=== PATIENT | female | born 1960 | race Caucasian/White ===

== ENCOUNTER 2021-03-30 13:39 | Inpatient (IN) | payer BC ==
[2021-03-30] MEDS ORDERED: Iopamidol-370 76% 500 ML 1 ML ONE (14:54)
[2021-03-30] MEDS ORDERED: Vancomycin 1.5 GRAM/300 ML BAG 1.5 GM in Premix Bag 1 BAG IVPB SCH (15:00)
[2021-03-30 15:03] LABS: Mean Corpuscular HGB CONC 33.3 g/dL (32.0-36.0); Mean Corpuscular Hemoglobin 30.4 pg (27.0-31.0); Mean Corpuscular Volume 91.2 fL (78.0-98.0); Mean Platelet Volume 8.3 fL (7.4-10.4); Platelet Count 161 thou/uL (130-400); RBC Distribution Width 13.2 % (11.5-14.5); Red Blood Cell (RBC) Count 3.93 mill/uL (4.20-5.40); White Blood Cell (WBC) Count 7.4 thou/uL (4.8-10.8)
[2021-03-30 15:08] LABS: Bacteria/HPF None Seen HPF (None Seen); Bilirubin 2+ (Negative); Blood, Urine 1+ (Negative); Clarity Turbid (Clear); Glucose, Urine (Dipstick) Normal (Negative); Ketone, Urine Trace mg/dL (Negative); Leukocyte Negative Leu/uL (Negative); Nitrite Negative (Negative); Protein, Urine (Dipstick) 70 mg/dL (Neg-Trace); RBC/HPF 0-3 HPF (0-3); Specific Gravity, Urine 1.032 (1.002-1.036); Squamous Epithelial None Seen HPF (0-3); WBC/HPF 0-3 HPF (0-3)
[2021-03-30 15:19] LABS: Anion Gap 16 mmol/L (10-20); BUN (Urea Nitrogen) 17 mg/dL (9.8-20.1); Calc. Creatinine Clearance 0 mL/min (70-130); Carbon Dioxide 19 mmol/L (22-29); Chloride 104 mmol/L (98-107); Sodium 136 mmol/L (136-145)
[2021-03-30 15:20] LABS: ALT (SGPT) 378 U/L (8-55); AST (SGOT) 292 U/L (5-34); Albumin 3.4 g/dL (3.5-5.0); Alkaline Phosphatase 342 U/L (40-110); Bilirubin, Total 5.6 mg/dL (0.2-1.2); Calcium 8.1 mg/dL (7.8-10.44); Globulin 2.1 g/dL (2.4-3.5); Glucose 102 mg/dL (70-105); Lipase 13 U/L (8-78); Protein, Total 5.5 g/dL (6.0-8.3)
[2021-03-30 15:21] LABS: Band 59 % (5-11); Lymphocytes 4 % (21-51); MDiff Complete? YES; Metamyelocyte 1 % (0-0); Monocytes 9 % (0-10); Neutrophil 25 % (42-75); Platelet Morphology Comment Appears Adequate; RBC Morphology Normal; Reactive Lymphocytes 2 % (0-10); Reflex for Review?? YES
[2021-03-30 15:22] LABS: Potassium 2.7 mmol/L (3.5-5.1)
[2021-03-30] MEDS ORDERED: Cefepime 2 GM VIAL ONE (15:32)
[2021-03-30 15:46] LABS: CKMB 1.5 ng/mL (0-6.6)
[2021-03-30] MEDS ORDERED: Magnesium 2 GM/50 ML BAG (IN WATER) ONE (17:24)
[2021-03-30 17:35] LABS: SARS-CoV-2 NAA Rapid Test Not Detected (NotDetected)
[2021-03-30 18:02] LABS: Lactic Acid 3.5 mmol/L (0.5-2.2)
[2021-03-30] MEDS ORDERED: NS 0.9% w/ 40 MEQ KCL 1,000 ML IV SCH (18:15)
[2021-03-30] MEDS ORDERED: Calcium Carbonate 500 MG ChewTAB PO PRN (19:09)
[2021-03-30] MEDS ORDERED: Nitroglycerin 0.4 MG TAB (25 Tab Bottle) SL PRN (19:12)
[2021-03-30] MEDS ORDERED: Potassium Chloride 40 MEQ in Sodium Chloride 0.9% 250 ML 250 ML IVPB SCH (19:15)
[2021-03-30] MEDS ORDERED: Morphine 2 MG/ML VIAL SLOW IVP PRN (19:20)
[2021-03-30] MEDS ORDERED: Heparin 10,000 UNITS/ 10 ML VIAL SLOW IVP SCH ×2 (19:30→22:00)
[2021-03-30] MEDS ORDERED: Heparin 25,000 units/D5W 500 ML IVPB SCH ×2 (19:30→22:00)
[2021-03-30 19:50] LABS: Hemoglobin 11.9 g/dL (12.0-16.0); Platelet Count 164 thou/uL (130-400)
[2021-03-30 19:57] LABS: Phosphorus 2.9 mg/dL (2.3-4.7)
[2021-03-30 19:59] LABS: ALT (SGPT) 329 U/L (8-55); AST (SGOT) 233 U/L (5-34); Albumin 3.2 g/dL (3.5-5.0); Alkaline Phosphatase 306 U/L (40-110); Anion Gap 17 mmol/L (10-20); BUN (Urea Nitrogen) 17 mg/dL (9.8-20.1); Bilirubin, Total 5.7 mg/dL (0.2-1.2); Calc. Creatinine Clearance 0 mL/min (70-130); Calcium 7.8 mg/dL (7.8-10.44); Carbon Dioxide 19 mmol/L (22-29); Chloride 106 mmol/L (98-107); Glucose 110 mg/dL (70-105); Potassium 3.3 mmol/L (3.5-5.1); Protein, Total 5.2 g/dL (6.0-8.3); Sodium 139 mmol/L (136-145)
[2021-03-30] MEDS ORDERED: Potassium Chloride 20 MEQ TAB PO SCH (20:00)
[2021-03-30 20:02] LABS: Hemoglobin A1c 5.3 % (4.0-6.0)
[2021-03-30 20:05] LABS: Critical Call Chem Troponin I RESULT DECREASING; Troponin I 1.951 ng/mL (< 0.028)
[2021-03-30 20:35] LABS: CKMB 3.8 ng/mL (0-6.6)
[2021-03-30] MEDS ORDERED: Enoxaparin Sodium 100 MG/ML SYRINGE SC SCH ×2 (21:00→21:15)
[2021-03-30] MEDS ORDERED: Atorvastatin Calcium 40 MG TAB PO SCH (21:30)
[2021-03-30] MEDS ORDERED: Meropenem 2 GM in Admixture Fee 1 EACH IVPB SCH (22:00)
[2021-03-30] MEDS ORDERED: MEROPENEM 1 GM/50 ML 1 GM in Premix Bag 1 BAG IVPB SCH (22:00)
[2021-03-30] MEDS: Lactated Ringer's 1,000 ML IV SCH (23:55)
[2021-03-31 00:02] LABS: Hemoglobin 11.5 g/dL (12.0-16.0); Platelet Count 152 thou/uL (130-400)
[2021-03-31] MEDS ORDERED: Pantoprazole 40 MG VIAL ONE (00:21)
[2021-03-31] MEDS: Pantoprazole 40 MG VIAL IVP SCH ×3 (00:27→20:49)
[2021-03-31 01:11] VITALS: BMI 37.5
[2021-03-31] MEDS ORDERED: Heparin 25,000 units/D5W 500 ML ONE (01:20)
[2021-03-31] MEDS ORDERED: Heparin 10,000 UNITS/ 10 ML VIAL ONE (01:21)
[2021-03-31] MEDS ORDERED: Heparin 10,000 UNITS/ 10 ML VIAL SLOW IVP SCH ×2 (01:45→09:45)
[2021-03-31] MEDS ORDERED: Heparin 25,000 units/D5W 500 ML IVPB SCH ×2 (01:45→09:45)
[2021-03-31] MEDS: Lactated Ringer's 1,000 ML IV SCH ×3 (02:58→17:23)
[2021-03-31] MEDS ORDERED: Acetaminophen 325 MG TAB ONE (02:59)
[2021-03-31] MEDS: Acetaminophen 325 MG TAB PO PRN (03:00)
[2021-03-31 04:35] LABS: Hemoglobin 11.1 g/dL (12.0-16.0); Mean Corpuscular HGB CONC 33.2 g/dL (32.0-36.0); Mean Corpuscular Hemoglobin 30.2 pg (27.0-31.0); Mean Platelet Volume 8.7 fL (7.4-10.4); Platelet Count 136 thou/uL (130-400); RBC Distribution Width 13.5 % (11.5-14.5); Red Blood Cell (RBC) Count 3.68 mill/uL (4.20-5.40); White Blood Cell (WBC) Count 10.1 thou/uL (4.8-10.8)
[2021-03-31 04:46] LABS: INR-International Normal Ratio 1.7; Prothrombin Time 20.3 sec (12.0-14.7)
[2021-03-31 04:52] LABS: Lactic Acid 1.7 mmol/L (0.5-2.2)
[2021-03-31 04:57] LABS: PTT 126.3 sec (22.9-36.1)
[2021-03-31 05:03] LABS: Critical Call Chem Troponin I RESULT DECREASING; Troponin I 1.697 ng/mL (< 0.028)
[2021-03-31 05:07] LABS: Band 46 % (5-11); Eosinophils 1 % (0-10); Lymphocytes 9 % (21-51); MDiff Complete? YES; Metamyelocyte 1 % (0-0); Monocytes 3 % (0-10); Neutrophil 40 % (42-75)
[2021-03-31 05:19] LABS: ALT (SGPT) 277 U/L (8-55); AST (SGOT) 175 U/L (5-34); Albumin 3.1 g/dL (3.5-5.0); Alkaline Phosphatase 277 U/L (40-110); BUN (Urea Nitrogen) 14 mg/dL (9.8-20.1); Bilirubin, Total 5.1 mg/dL (0.2-1.2); Calc. Creatinine Clearance 144 mL/min (70-130); Calcium 7.7 mg/dL (7.8-10.44); Carbon Dioxide 17 mmol/L (22-29); Cardiac Risk 5.2 (Less than 4.5); Chloride 109 mmol/L (98-107); Cholesterol 89 mg/dl (< 200 Desired); Glucose 105 mg/dL (70-105); HDL Cholesterol 17 mg/dL (>60 Neg Risk); LDL Cholesterol, Calculated 45 mg/dL; Lipase 25 U/L (8-78); Potassium 3.9 mmol/L (3.5-5.1); Protein, Total 5.1 g/dL (6.0-8.3); Sodium 138 mmol/L (136-145); Triglycerides 137 mg/dL (Less than 150)
[2021-03-31 05:58] LABS: Anion Gap 16 mmol/L (10-20)
[2021-03-31] MEDS: MEROPENEM 1 GM/50 ML 1 GM in Premix Bag 1 BAG IVPB SCH ×3 (06:35→22:00)
[2021-03-31] MEDS ORDERED: FLUoxetine HCl 10 MG CAP PO SCH (09:00)
[2021-03-31] MEDS ORDERED: Atorvastatin Calcium 10 MG TAB PO SCH (09:00)
[2021-03-31] MEDS: Montelukast Sodium 10 mg Tablet PO SCH (09:09)
[2021-03-31] MEDS: Lisinopril 20 MG TAB PO SCH (09:09)
[2021-03-31 09:55] LABS: Iron 13 ug/dL (50-170); Iron Binding Capacity, Total 194 mcg/dL (265-497)
[2021-03-31 10:15] LABS: HBCM Index 0.06 S/CO (0-0.79); HBSAg Index 0.11 S/CO (0-0.99); Hep A IgM AB Non-Reactive (NonReactive); Hep A IgM S/CO 0.07 S/CO (0-0.79); Hep B Surf Ag Non-Reactive S/CO (NonReactive); Hep C IgG Ab Non-Reactive (NonReactive); Hep C Index 0.04 S/CO (0-0.79); Hepatitis B Core IgM Abs Non-Reactive (NonReactive)
[2021-03-31 11:08] LABS: Hemoglobin 11.1 g/dL (12.0-16.0); Platelet Count 138 thou/uL (130-400)
[2021-03-31 11:50] LABS: Critical Call Chem Troponin I RESULT DECREASING; Troponin I 1.595 ng/mL (< 0.028)
[2021-03-31] MEDS ORDERED: Ketorolac Tromethamine 30 MG/ML VIAL IVP SCH (14:45)
[2021-03-31 15:03] LABS: INR-International Normal Ratio 1.5; Prothrombin Time 18.5 sec (12.0-14.7)
[2021-03-31 15:04] LABS: PTT 49.7 sec (22.9-36.1)
[2021-03-31] MEDS ORDERED: Fentanyl 100 MCG/2 ML VIAL ONE (15:04)
[2021-03-31] MEDS ORDERED: Sodium Bicarbonate 2.5 MEQ/5 ML VIAL ONE (15:04)
[2021-03-31] MEDS ORDERED: Ondansetron PF 4 MG/2 ML Vial ONE (15:44)
[2021-03-31] MEDS ORDERED: Ondansetron PF 4 MG/2 ML Vial IVP PRN (16:38)
[2021-03-31 18:15] LABS: WBC/Nucleated-Auto (BF) 105 uL
[2021-03-31 18:20] LABS: RBC Count-Automated (BF) 15 /cu.mm
[2021-03-31 18:24] LABS: BF Color Brown; Clarity Hazy (Clear); Tube # EDTA
[2021-03-31] MEDS: Morphine 4 MG/ML VIAL SLOW IVP PRN ×2 (18:47→21:01)
[2021-03-31] MEDS: Atorvastatin Calcium 40 MG TAB PO SCH (20:49)
[2021-04-01] MEDS: Morphine 4 MG/ML VIAL SLOW IVP PRN (01:04)
[2021-04-01] MEDS: Lactated Ringer's 1,000 ML IV SCH ×3 (04:45→17:50)
[2021-04-01] MEDS: MEROPENEM 1 GM/50 ML 1 GM in Premix Bag 1 BAG IVPB SCH ×3 (05:43→21:06)
[2021-04-01 07:09] LABS: Hemoglobin 10.8 g/dL (12.0-16.0); Mean Corpuscular HGB CONC 34.6 g/dL (32.0-36.0); Mean Corpuscular Hemoglobin 31.3 pg (27.0-31.0); Mean Corpuscular Volume 90.4 fL (78.0-98.0); Mean Platelet Volume 8.3 fL (7.4-10.4); Platelet Count 141 thou/uL (130-400); RBC Distribution Width 13.6 % (11.5-14.5); Red Blood Cell (RBC) Count 3.45 mill/uL (4.20-5.40); White Blood Cell (WBC) Count 8.7 thou/uL (4.8-10.8)
[2021-04-01 07:40] LABS: ALT (SGPT) 224 U/L (8-55); AST (SGOT) 154 U/L (5-34); Albumin 2.9 g/dL (3.5-5.0); Alkaline Phosphatase 294 U/L (40-110); Anion Gap 14 mmol/L (10-20); BUN (Urea Nitrogen) 15 mg/dL (9.8-20.1); Bilirubin, Total 4.4 mg/dL (0.2-1.2); Calc. Creatinine Clearance 162 mL/min (70-130); Calcium 7.8 mg/dL (7.8-10.44); Carbon Dioxide 19 mmol/L (22-29); Chloride 105 mmol/L (98-107); Globulin 2.4 g/dL (2.4-3.5); Glucose 119 mg/dL (70-105); Potassium 4.1 mmol/L (3.5-5.1); Protein, Total 5.3 g/dL (6.0-8.3); Sodium 134 mmol/L (136-145)
[2021-04-01 08:30] LABS: Band 30 % (5-11); Eosinophils 1 % (0-10); Lymphocytes 10 % (21-51); MDiff Complete? YES; Monocytes 5 % (0-10); Neutrophil 54 % (42-75); Platelet Morphology Comment Appears Adequate; Polychromasia SLIGHT = 2-3 cells (100X) (0-2/hpf)
[2021-04-01] MEDS: Pantoprazole 40 MG VIAL IVP SCH ×2 (08:48→21:06)
[2021-04-01] MEDS: Lisinopril 20 MG TAB PO SCH (08:48)
[2021-04-01] MEDS: Montelukast Sodium 10 mg Tablet PO SCH (08:48)
[2021-04-01] MEDS ORDERED: traMADol HCl 50 MG TAB PO PRN (09:13)
[2021-04-01 11:49] LABS: Ref Lab Test Ordered HEV IGM; Reference Lab Name LABCORP
[2021-04-01] MEDS: HYDROcodone/Acetaminophen 5/325 mg Tablet PO PRN ×2 (12:27→21:07)
[2021-04-01] MEDS ORDERED: hydrALAZINE 20 MG/ML VIAL SLOW IVP PRN ×2 (16:24→16:26)
[2021-04-01] MEDS: Atorvastatin Calcium 40 MG TAB PO SCH (21:06)
[2021-04-01] MEDS: Acetaminophen 325 MG TAB PO PRN (21:10)
[2021-04-02 03:48] LABS: INR-International Normal Ratio 1.3; Prothrombin Time 16.4 sec (12.0-14.7)
[2021-04-02 03:58] LABS: Band 21 % (5-11); Hemoglobin 10.6 g/dL (12.0-16.0); Hypochromia SLIGHT = 6-15 cells (100X) (0-5/hpf); Lymphocytes 6 % (21-51); MDiff Complete? YES; Mean Corpuscular HGB CONC 34.6 g/dL (32.0-36.0); Mean Corpuscular Hemoglobin 31.4 pg (27.0-31.0); Mean Corpuscular Volume 90.6 fL (78.0-98.0); Mean Platelet Volume 8.5 fL (7.4-10.4); Metamyelocyte 1 % (0-0); Monocytes 11 % (0-10); Neutrophil 61 % (42-75); Platelet Count 150 thou/uL (130-400); Platelet Morphology Comment Appears Adequate; RBC Distribution Width 13.5 % (11.5-14.5); Red Blood Cell (RBC) Count 3.39 mill/uL (4.20-5.40); White Blood Cell (WBC) Count 7.9 thou/uL (4.8-10.8)
[2021-04-02 04:09] LABS: ALT (SGPT) 161 U/L (8-55); AST (SGOT) 77 U/L (5-34); Albumin 2.9 g/dL (3.5-5.0); Alkaline Phosphatase 384 U/L (40-110); Anion Gap 8 mmol/L (10-20); BUN (Urea Nitrogen) 11 mg/dL (9.8-20.1); Bilirubin, Total 4.3 mg/dL (0.2-1.2); Calc. Creatinine Clearance 162 mL/min (70-130); Calcium 8.2 mg/dL (7.8-10.44); Carbon Dioxide 28 mmol/L (22-29); Chloride 105 mmol/L (98-107); Globulin 1.9 g/dL (2.4-3.5); Glucose 100 mg/dL (70-105); Potassium 3.6 mmol/L (3.5-5.1); Protein, Total 4.8 g/dL (6.0-8.3); Sodium 137 mmol/L (136-145)
[2021-04-02] MEDS: MEROPENEM 1 GM/50 ML 1 GM in Premix Bag 1 BAG IVPB SCH (05:04)
[2021-04-02] MEDS: Lactated Ringer's 1,000 ML IV SCH (05:05)
[2021-04-02] MEDS: HYDROcodone/Acetaminophen 5/325 mg Tablet PO PRN (05:05)
[2021-04-02] MEDS ORDERED: Lactated Ringer's 1,000 ML IV SCH (08:15)
[2021-04-02] MEDS: Lisinopril 20 MG TAB PO SCH (08:37)
[2021-04-02] MEDS: Montelukast Sodium 10 mg Tablet PO SCH (08:37)
[2021-04-02] MEDS: Pantoprazole 40 MG VIAL IVP SCH (08:37)
[2021-04-02] MEDS: Polyethylene Glycol 3350 17 GM Packet PO SCH (08:45)
[2021-04-02] MEDS ORDERED: cefTRIAXone\\ROCEPHIN 2 GM in Sodium Chloride 0.9% 100 ML IVPB SCH (09:00)
[2021-04-02] MEDS: cefTRIAXone\\ROCEPHIN 2 GM in Sodium Chloride 0.9% 100 ML IVPB SCH (12:53)
[2021-04-02] MEDS: Atorvastatin Calcium 40 MG TAB PO SCH (20:58)
[2021-04-02] MEDS: Acetaminophen 325 MG TAB PO PRN (21:01)
[2021-04-03 05:22] LABS: ALT (SGPT) 134 U/L (8-55); AST (SGOT) 67 U/L (5-34); Albumin 2.8 g/dL (3.5-5.0); Alkaline Phosphatase 501 U/L (40-110); Anion Gap 14 mmol/L (10-20); BUN (Urea Nitrogen) 9 mg/dL (9.8-20.1); Calc. Creatinine Clearance 178 mL/min (70-130); Calcium 8.1 mg/dL (7.8-10.44); Carbon Dioxide 24 mmol/L (22-29); Chloride 104 mmol/L (98-107); Globulin 2.2 g/dL (2.4-3.5); Glucose 122 mg/dL (70-105); Potassium 3.7 mmol/L (3.5-5.1); Sodium 138 mmol/L (136-145)
[2021-04-03 05:31] LABS: Band 9 % (5-11); Hemoglobin 11.4 g/dL (12.0-16.0); Lymphocytes 15 % (21-51); MDiff Complete? YES; Mean Corpuscular HGB CONC 33.1 g/dL (32.0-36.0); Mean Corpuscular Hemoglobin 29.9 pg (27.0-31.0); Mean Corpuscular Volume 90.4 fL (78.0-98.0); Mean Platelet Volume 8.5 fL (7.4-10.4); Monocytes 5 % (0-10); Myelocyte 2 % (0-0); Neutrophil 67 % (42-75); Platelet Count 167 thou/uL (130-400); Platelet Morphology Comment Appears Adequate; RBC Distribution Width 13.8 % (11.5-14.5); RBC Morphology Normal; Reactive Lymphocytes 2 % (0-10); White Blood Cell (WBC) Count 8.3 thou/uL (4.8-10.8)
[2021-04-03] MEDS: Lisinopril 20 MG TAB PO SCH (08:48)
[2021-04-03] MEDS: Montelukast Sodium 10 mg Tablet PO SCH (08:48)
[2021-04-03] MEDS: Polyethylene Glycol 3350 17 GM Packet PO SCH (08:49)
[2021-04-03] MEDS ORDERED: FLU VACC QS2021-22(6MOS UP)/PF 60 MCG/0.5 ML SYRINGE IM ONE (09:00)
[2021-04-03] MEDS ORDERED: Polyethylene Glycol 3350 17 GM Packet PO PRN (11:03)
[2021-04-03] MEDS ORDERED: Lisinopril 20 MG TAB PO SCH (11:30)
[2021-04-03] MEDS: cefTRIAXone\\ROCEPHIN 2 GM in Sodium Chloride 0.9% 100 ML IVPB SCH (12:05)
[2021-04-03 15:40] LABS: ANA Symphony (Qualitative) Negative (Negative); ANA Symphony (Quantitative) 0.5 Ratio (< 0.7 Negative); EliA Vaculitis New Method **** NEW METHOD ****; Mitochondrial Ab Less than 0.5 U/mL (<4 Negative); dsDNA IgG Antibody 1.5 IU/mL (<10 Negative)
[2021-04-03] MEDS: Atorvastatin Calcium 40 MG TAB PO SCH (20:44)
[2021-04-03] MEDS: HYDROcodone/Acetaminophen 5/325 mg Tablet PO PRN (20:44)
[2021-04-04 05:19] LABS: #Eosinphils 0.1 thou/uL (0.0-0.7); #Lymphocytes 1.7 thou/uL (1.20-3.40); #Monocytes 0.8 thou/uL (0.11-0.59); #Neutrophils 5.3 thou/uL (1.40-6.50); %Basophils 0.4 % (0.0-1.0); %Eosinophils 1.2 % (0.0-10.0); %Lymphocytes 21.5 % (21.0-51.0); %Monocytes 10.5 % (0.0-10.0); %Neutrophils 66.5 % (42.0-75.0); Hemoglobin 10.8 g/dL (12.0-16.0); Mean Corpuscular Hemoglobin 30.6 pg (27.0-31.0); Mean Corpuscular Volume 90.2 fL (78.0-98.0); Platelet Count 216 thou/uL (130-400); Red Blood Cell (RBC) Count 3.53 mill/uL (4.20-5.40)
[2021-04-04 05:42] LABS: ALT (SGPT) 108 U/L (8-55); AST (SGOT) 50 U/L (5-34); Albumin 2.8 g/dL (3.5-5.0); Alkaline Phosphatase 502 U/L (40-110); Anion Gap 10 mmol/L (10-20); BUN (Urea Nitrogen) 7 mg/dL (9.8-20.1); Bilirubin, Total 2.1 mg/dL (0.2-1.2); Calc. Creatinine Clearance 178 mL/min (70-130); Calcium 8.2 mg/dL (7.8-10.44); Carbon Dioxide 26 mmol/L (22-29); Chloride 107 mmol/L (98-107); Globulin 2.3 g/dL (2.4-3.5); Glucose 99 mg/dL (70-105); Potassium 3.8 mmol/L (3.5-5.1); Protein, Total 5.1 g/dL (6.0-8.3); Sodium 139 mmol/L (136-145)
[2021-04-04] MEDS: Lisinopril 20 MG TAB PO SCH (08:16)
[2021-04-04] MEDS: Montelukast Sodium 10 mg Tablet PO SCH (08:16)
[2021-04-04] MEDS: Hydrochlorothiazide 25 MG TAB PO SCH (10:21)
[2021-04-04] MEDS: cefTRIAXone\\ROCEPHIN 2 GM in Sodium Chloride 0.9% 100 ML IVPB SCH (11:37)
[2021-04-04] MEDS: HYDROcodone/Acetaminophen 5/325 mg Tablet PO PRN (20:05)
[2021-04-04] MEDS: Atorvastatin Calcium 40 MG TAB PO SCH (20:05)
[2021-04-05 05:00] LABS: #Eosinphils 0.1 thou/uL (0.0-0.7); #Lymphocytes 1.8 thou/uL (1.20-3.40); #Monocytes 0.7 thou/uL (0.11-0.59); #Neutrophils 5.5 thou/uL (1.40-6.50); %Basophils 0.6 % (0.0-1.0); %Eosinophils 1.8 % (0.0-10.0); %Lymphocytes 22.2 % (21.0-51.0); %Monocytes 8.6 % (0.0-10.0); %Neutrophils 66.8 % (42.0-75.0); Hemoglobin 10.8 g/dL (12.0-16.0); Mean Corpuscular HGB CONC 34.9 g/dL (32.0-36.0); Mean Corpuscular Hemoglobin 31.1 pg (27.0-31.0); Mean Corpuscular Volume 89.1 fL (78.0-98.0); Mean Platelet Volume 7.5 fL (7.4-10.4); Platelet Count 260 thou/uL (130-400); RBC Distribution Width 14.1 % (11.5-14.5); Red Blood Cell (RBC) Count 3.48 mill/uL (4.20-5.40); White Blood Cell (WBC) Count 8.3 thou/uL (4.8-10.8)
[2021-04-05 05:26] LABS: ALT (SGPT) 95 U/L (8-55); AST (SGOT) 48 U/L (5-34); Alkaline Phosphatase 492 U/L (40-110); Anion Gap 14 mmol/L (10-20); BUN (Urea Nitrogen) 7 mg/dL (9.8-20.1); Calc. Creatinine Clearance 184 mL/min (70-130); Calcium 8.4 mg/dL (7.8-10.44); Carbon Dioxide 25 mmol/L (22-29); Chloride 105 mmol/L (98-107); Globulin 2.4 g/dL (2.4-3.5); Glucose 99 mg/dL (70-105); Potassium 3.8 mmol/L (3.5-5.1); Protein, Total 5.4 g/dL (6.0-8.3); Sodium 140 mmol/L (136-145)
[2021-04-05] MEDS ORDERED: Enoxaparin Sodium 40 MG/0.4 ML SYRINGE SC SCH (06:30)
[2021-04-05] MEDS: Hydrochlorothiazide 25 MG TAB PO SCH (09:25)
[2021-04-05] MEDS: Lisinopril 20 MG TAB PO SCH (09:26)
[2021-04-05] MEDS: Montelukast Sodium 10 mg Tablet PO SCH (09:27)
[2021-04-05] MEDS ORDERED: FLUoxetine HCl 10 MG CAP PO SCH (09:45)
[2021-04-05] MEDS ORDERED: Cefdinir 300 MG CAP PO SCH ×2 (10:30→21:00)
[2021-04-05 15:28] VITALS: BP 135/77; TEMP 98.4
[2021-04-06] MEDS ORDERED: Enoxaparin Sodium 40 MG/0.4 ML SYRINGE SC SCH (09:00)
[2021-04-06] MEDS ORDERED: FLUoxetine HCl 10 MG CAP PO SCH (09:00)
== END 2021-04-05 16:50 | disposition home or self-care (01) | DRG 871 ==
LOC: ERS 13:39 → ERHOLD 17:17 → IMCU/EMU 03-31 04:54 → 2NO 04-02 19:17
PROVIDERS: ADMIT Family Medicine; ATTEND Family Medicine
PROC: 0F9430Z Drainage of Gallbladder with Drainage Device, Percutaneous Approach (ICD-10-PCS; principal; 2021-03-31)
DX: A41.51 Sepsis due to Escherichia coli [E. coli] (principal); I21.A1 Myocardial infarction type 2; K83.09 Other cholangitis; K81.0 Acute cholecystitis; E87.2 Acidosis; K21.9 Gastro-esophageal reflux disease without esophagitis; E78.5 Hyperlipidemia, unspecified; E78.00 Pure hypercholesterolemia, unspecified; I10 Essential (primary) hypertension; F41.9 Anxiety disorder, unspecified; R74.01 Elevation of levels of liver transaminase levels; E87.6 Hypokalemia; J30.2 Other seasonal allergic rhinitis; N80.9 Endometriosis, unspecified; E66.9 Obesity, unspecified; Z20.822 Contact with and (suspected) exposure to COVID-19; Z79.899 Other long term (current) drug therapy; Z90.49 Acquired absence of other specified parts of digestive tract; Z68.36 Body mass index [BMI] 36.0-36.9, adult; Z85.528 Personal history of other malignant neoplasm of kidney
CPT/HCPCS: 0240U; 36415; 49020; 51702; 70450; 71045; 71260; 74177; 76705; 77002; 78227; 80053; 80061; 80074; 81003; 81015; 82248; 82550; 82553; 83036; 83516; 83540; 83550; 83605; 83690; 83735; 84100; 84443; 84484; 85007; 85025; 85027; 85060; 85610; 85730; 86038; 86225; 86790; 87040; 87070; 87077; 87086; 87186; 87205; 89051; 93005; 93010; 93306; 96365; 96367; 96375; A9537; C1729; C9113; J0360; J0692; J0696; J1644; J1650; J2185; J2270; J2405; J3010; J3370; J3475; J3480; J3490; J7050; J7120; Q9967

== ENCOUNTER 2021-04-27 06:42 | Day surgery (SDC) | payer BC ==
[2021-04-26 10:37] VITALS: BMI 33.9
[2021-04-27] MEDS ORDERED: Ketorolac Tromethamine 30 MG/ML VIAL ONE (06:57)
[2021-04-27] MEDS ORDERED: Acetaminophen 500 MG TAB ONE (06:58)
[2021-04-27] MEDS ORDERED: Lidocaine 1% w/Epinephrine 1:100K 20 ML VIAL ONE (08:20)
[2021-04-27] MEDS ORDERED: Bupivacaine 0.25% HCL 30 ML VIAL ONE (08:20)
[2021-04-27] MEDS ORDERED: Iothalamate Meglumine 60% 50 ML VIAL FS ONE (08:37)
[2021-04-27] MEDS ORDERED: HYDROmorphone 2 MG/ML VIAL ONE (08:43)
[2021-04-27] MEDS ORDERED: Fentanyl 100 MCG/2 ML VIAL ONE (08:43)
[2021-04-27] MEDS ORDERED: Dexamethasone 20 MG/5 ML VIAL ONE (08:56)
[2021-04-27] MEDS ORDERED: ePHEDrine 50 MG/ML VIAL ONE (08:56)
[2021-04-27] MEDS ORDERED: Glycopyrrolate 0.2 MG/ML 5 ML SYRINGE ONE (08:56)
[2021-04-27] MEDS ORDERED: PROPOFOL 200 MG/20 ML VIAL ONE (08:56)
[2021-04-27] MEDS ORDERED: Metoclopramide HCl 10 MG/2 ML VIAL ONE (08:56)
[2021-04-27] MEDS ORDERED: Ondansetron PF 4 MG/2 ML Vial ONE (08:56)
[2021-04-27] MEDS ORDERED: Rocuronium Bromide 10 MG/ML (10ML VIAL) ONE (08:56)
[2021-04-27] MEDS ORDERED: PHENYLEPHRINE-NS 100 MCG/ML 10 ML SYRINGE ONE (08:56)
[2021-04-27] MEDS ORDERED: Lidocaine 1% PF 5 ML VIAL ONE (08:56)
== END 2021-04-27 12:30 | disposition home or self-care (01) ==
LOC: SDC 06:42
PROVIDERS: ATTEND Surgery
PROC: 0FT44ZZ Resection of Gallbladder, Percutaneous Endoscopic Approach (ICD-10-PCS; principal; 2021-04-27)
PROC: BF101ZZ Fluoroscopy of Bile Ducts using Low Osmolar Contrast (ICD-10-PCS; principal; 2021-04-27)
DX: K80.12 Calculus of gallbladder with acute and chronic cholecystitis without obstruction (principal); K82.8 Other specified diseases of gallbladder; I10 Essential (primary) hypertension; Z79.899 Other long term (current) drug therapy; Z90.5 Acquired absence of kidney
CPT/HCPCS: 47532; 88304; J0690; J1100; J1170; J1610; J1885; J2405; J2704; J2765; J3010; J3490; Q9961-U8; S0020

== ENCOUNTER 2023-07-05 15:34 | Emergency (ER) | payer BC ==
[~2023-07-05 15:34] MED LIST: Iopamidol-370 76% 500 ML MDV (1 ML CHARGE) ONE
[2023-07-05] MEDS ORDERED: Ondansetron PF 4 MG/2 ML Vial ONE (16:06)
[2023-07-05 16:49] LABS: #Monocytes 0.5 thou/uL (0.11-0.59); #Neutrophils 6.7 thou/uL (1.40-6.50); %Basophils 0.4 % (0.0-1.0); %Eosinophils 0.4 % (0.0-10.0); %Lymphocytes 18.8 % (21.0-51.0); %Monocytes 5.9 % (0.0-10.0); %Neutrophils 74.2 % (42.0-75.0); Hematocrit 33.4 % (36.0-47.0); Hemoglobin 10.4 g/dL (12.0-16.0); Mean Corpuscular HGB CONC 31.1 g/dL (32.0-36.0); Mean Corpuscular Hemoglobin 23.9 pg (27.0-31.0); Mean Corpuscular Volume 76.8 fl (78.0-98.0); Mean Platelet Volume 10.9 fL (7.4-10.4); Platelet Count 309 10x3/uL (130-400); RBC Distribution Width 18.4 % (11.5-14.5); Red Blood Cell (RBC) Count 4.35 mill/uL (4.20-5.40)
[2023-07-05 17:49] LABS: ALT (SGPT) 16 U/L (8-55); AST (SGOT) 21 U/L (5-34); Albumin 4.4 g/dL (3.4-4.8); Alkaline Phosphatase 138 U/L (40-110); Anion Gap 16 mmol/L (10-20); BUN (Urea Nitrogen) 16 mg/dL (9.8-20.1); Bilirubin, Total 0.4 mg/dL (0.2-1.2); Calc. Creatinine Clearance 0 mL/min (70-130); Calcium 9.2 mg/dL (7.8-10.44); Carbon Dioxide 20 mmol/L (23-31); Chloride 106 mmol/L (98-107); Estimated GFR 68; Globulin 3.3 g/dL (2.4-3.5); Glucose 76 mg/dL (80-115); Lipase 45 U/L (8-78); Potassium 3.6 mmol/L (3.5-5.1); Protein, Total 7.7 g/dL (5.8-8.1); Sodium 138 mmol/L (136-145)
[2023-07-05 17:56] LABS: Troponin I Less than 0.010 ng/mL (< 0.028)
[2023-07-05 18:42] LABS: Bilirubin Negative (Negative); Blood, Urine Negative (Negative); CAUTI Indications for Culture < 2yrs of age; Clarity Clear (Clear); Glucose, Urine (Dipstick) Normal (Negative); Ketone, Urine Negative (Negative); Leukocyte Negative Leu/uL (Negative); Mucous/LPF Rare LPF (<2+); Nitrite Negative (Negative); Protein, Urine (Dipstick) Negative (Neg-Trace); RBC/HPF None Seen HPF (0-3); Specific Gravity, Urine 1.015 (1.002-1.036); Squamous Epithelial 0-3 HPF (0-3); Urobilinogen Normal mg/dL (Less than 2)
[2023-07-05 18:47] LABS: Bacteria/HPF 1+ HPF (None Seen)
[2023-07-05 18:48] LABS: Urine Culture Reflex Yes Yes
== END 2023-07-05 19:48 | disposition home or self-care (01) ==
LOC: ERS 15:34
DX: N28.1 Cyst of kidney, acquired (principal); R55 Syncope and collapse; R19.7 Diarrhea, unspecified; I10 Essential (primary) hypertension
CPT/HCPCS: 36415; 71045; 74177; 80053; 81001; 83690; 84484; 85025; 87086; 93005; 94760; 96361; 96374; J2405; Q9967